=== PATIENT | male | born 1985 | race African-American/Black ===

== ENCOUNTER 2021-01-12 04:51 | Emergency (ER) | payer MEDICAID ==
[~2021-01-12] VITALS: Ht 185.4 cm; Wt 82.0 kg
[2021-01-12 05:00] VITALS: BP 140/96
== END 2021-01-12 05:00 | disposition home or self-care (01) ==
LOC: ER 04:51
DX: F15.10 Other stimulant abuse, uncomplicated (principal); B20 Human immunodeficiency virus [HIV] disease
CPT/HCPCS: 99283

== ENCOUNTER 2021-01-12 07:24 | Emergency (ER) | payer MEDICAID ==
[~2021-01-12] VITALS: Ht 180.3 cm; Wt 79.0 kg
[2021-01-12 08:04] VITALS: BP 114/57
[2021-01-12 08:21] LABS: BASOPHILS % 0.8 % (0.0-2.0); EOSINOPHILS % 0.6 % (0.0-5.0); HEMATOCRIT. 43.1 % (42.0-52.0); HEMOGLOBIN. 14.7 g/dL (14.0-18.0); LYMPHOCYTES % 28.3 % (20.0-50.0); MEAN CORPUSCULAR HEMOGLOBIN 32.5 pg (28.0-32.0); MEAN CORPUSCULAR VOLUME 95.8 fL (80.0-94.0); MEAN PLATELET VOLUME 6.6 fl (7.4-10.4); NEUTROPHILS % 62.3 % (40.0-76.0); PLATELET 263 x1000/uL (130-400); RED CELL DISTRIBUTION WIDTH 13.8 % (11.6-14.6)
[2021-01-12 08:27] LABS: CHLORIDE 106 mEq/L (98-107)
[2021-01-12] MEDS ORDERED: HALOPERIDOL LACTATE 5MG/ML VIAL IM ONE (08:30)
[2021-01-12] MEDS ORDERED: LORAZEPAM 2MG/ML CPJ IM ONE (08:30)
[2021-01-12 08:32] LABS: ETHANOL BLOOD < 10 mg/dL
[2021-01-12 08:48] LABS: CLARITY URINE TURBID (CLEAR); COLOR URINE DK YELLOW (YELLOW); KETONES URINE TRACE (NEGATIVE); LEUKOCYTE ESTERASE URINE TRACE (NEGATIVE); NITRITE URINE NEGATIVE (NEGATIVE); OCCULT BLOOD URINE 3+ (NEGATIVE); PH URINE 5.5 (4.5-8.0); PROTEIN URINE 2+ (NEGATIVE); SPECIFIC GRAVITY URINE 1.033 (1.005-1.030)
[2021-01-12 09:00] LABS: *AMPHETAMINES SCREEN URINE PRESUMTIVE POSITIVE (NEGATIVE); *BARBITURATES SCREEN URINE NEGATIVE (NEGATIVE); *BENZODIAZEPINES SCREEN URINE PRESUMTIVE POSITIVE (NEGATIVE); *COCAINE SCREEN URINE PRESUMTIVE POSITIVE (NEGATIVE)
[2021-01-12 09:01] LABS: CANNABINOID URINE SCREEN PRESUMTIVE POSITIVE (NEGATIVE); METHADONE URINE SCREEN NEGATIVE (NEGATIVE); OPIATES URINE SCREEN NEGATIVE (NEGATIVE); PHENCYCLIDINE URINE SCREEN PRESUMTIVE POSITIVE (NEGATIVE)
== END 2021-01-12 10:09 | disposition home or self-care (01) ==
LOC: ER 07:30
DX: F19.10 Other psychoactive substance abuse, uncomplicated (principal); F29 Unspecified psychosis not due to a substance or known physiological condition; B20 Human immunodeficiency virus [HIV] disease
CPT/HCPCS: 36415; 80053; 80305; 80307; 80320; 80329; 81003; 85025; 93005; 99284; C1893; Z7610; G0480

== ENCOUNTER 2021-02-14 15:36 | Emergency (ER) | payer MEDICAID ==
[~2021-02-14] VITALS: Ht 177.8 cm; Wt 75.0 kg
[2021-02-14 15:40] VITALS: BP 127/86
== END 2021-02-14 19:22 | disposition left against medical advice (07) ==
LOC: ER 15:36
DX: L03.317 Cellulitis of buttock (principal); F17.200 Nicotine dependence, unspecified, uncomplicated; B20 Human immunodeficiency virus [HIV] disease; Z71.6 Tobacco abuse counseling
CPT/HCPCS: 99281; 99406